=== PATIENT | female | born 1990 | race Caucasian/White ===

== ENCOUNTER 2022-03-20 16:14 | Emergency (ER) | payer MEDICAID, OTHER ==
[2022-03-20] MEDS ORDERED: hydrOXYzine 25 MG TAB ONE ×2 (17:22→17:25)
== END 2022-03-20 17:41 | disposition home or self-care (01) ==
LOC: ERS 16:14
DX: Z00.00 Encounter for general adult medical examination without abnormal findings (principal)
CPT/HCPCS: 99284